=== PATIENT | female | born 1990 | race Caucasian/White ===

== ENCOUNTER 2024-01-07 07:45 | Inpatient (IN) ==
[2024-01-07] MEDS: LACTATED RINGER'S 1,000 ML IV PRN (08:25)
[2024-01-07] MEDS ORDERED: OXYTOCIN 30 UNITS/NSS 30 UNITS/500 ML BAG IV PRN ×2 (08:27→08:34)
[2024-01-07] MEDS ORDERED: LIDOCAINE 1% LOCAL 20 ML VIAL INFIL PRN (08:27)
--- NOTE | 2024-01-07 08:30 | History & Physical Report ---
Date of Service January 07, 2024 Assessment & Plan (1) Encounter for induction of labor: Plan Plan to start pitocin. Once bulb out, plan arom. epidural on demand. fetus category one. anticipate . Admission and Anticipated Discharge Date Admission Date: January 07, 2024 History of Present Illness Chief Complaint: iol Primary Care Provider: IAM Mohan Patient is a 33yowf with iup who presents to labor and delivery for elective iol. She had a browne bulb placed last night. It has not come out. Notes no contractions. No lof/vb. +fm. and Delivery Plans Elective IOL 01/07/24 OB Labs: Blood Type O Positive 06/07/23 Antibody Screen NEGATIVE 06/07/23 Hemoglobin 12.2 g/dl (12.0-16.0) 10/21/23 Hematocrit 35.7 % (37.0-47.0) L 10/21/23 Mean Corpuscular Volume 89.9 fL (80.0-100.0) 06/07/23 Platelet Count 267 K/uL (130-400) 06/07/23 Rubella IgG Antibody Equivocal (Immune) L 06/07/23 Rapid Plasma Reagin Nonreactive (Nonreactive) 06/07/23 Hepatitis B Surface Antigen. NON-REACTIVE (NON-REACTIVE) 06/07/23 Hepatitis C Antibody (EIA) NON-REACTIVE (NON-REACTIVE) 06/07/23 HIV (1&2) Ag and Ab Confirmation NON-REACTIVE (NON-REACTIVE) 06/07/23 Glucose 1 Hour 50 gm Load 88 mg/dl (70-130) 10/21/23 OB Optional Labs: Chlamydia trachomatis RNA Not Detected (NotDetected) 06/07/23 Neisseria gonorrhoeae RNA Not Detected (NotDetected) 06/07/23 Labs Reviewed: cfdna-low risk--mln gbs neg--akh Allergies Allergy/AdvReac Type Severity Reaction Status Date / Time No Known Allergies Allergy Verified 01/06/24 09:02 Home Medications Medication Instructions Recorded Confirmed Type cetirizine 10 mg tablet (Zyrtec) 10 mg PO DAILY PRN Allergy Symptoms 11/13/22 01/06/24 History vit 168-iron 27 mg-folic 1 cap PO 05/28/23 01/06/24 History acid 800 mcg-omega3 235 mg capsule (One-A-Day -1) omeprazole 20 mg tablet,delayed 20 mg PO DAILY 01/06/24 01/06/24 History release Patient History Medical History Mohs defect Surgical History H/O colposcopy with cervical biopsy 2018, LGSIL, neg History of laser assisted in situ keratomileusis Family History Father Heart disease Other Colorectal cancer Myocardial infarction Denies family history of Ovarian cancer Breast cancer Social History Smoking Status: Never smoker Second Hand Exposure: No; Do You Dip or Chew Tobacco: No; Hx Alcohol Use: Yes (not while ) Alcohol type: wine Alcohol Intake Frequency Comment: weekly Hx Substance Use: No Preferred Language: Armenian Communication Ability: Effective Indian Blanket Weaver Required: No Beliefs That Will Affect Care: None marital status: marital status details: Festus [phone] Current Living Situation: Spouse Current Living Situation Comment: lives with spouse, 1 dog current occupational status: employed 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
[2024-01-07] MEDS: OXYTOCIN 30 UNITS/NSS 30 UNITS/500 ML BAG IV PRN (08:46)
[2024-01-07 09:27] LABS: Hematocrit (blood only) 34.3 % (37.0-47.0); Hemoglobin 11.3 g/dl (12.0-16.0); Mean Corpuscular Hemoglobin 30.7 pg (25.0-34.0); Mean Corpuscular Hgb Conc 32.9 g/dL (32.0-36.0); Mean Corpuscular Volume 93.2 fL (80.0-100.0); Mean Platelet Volume 12.1 fL (9.4-12.4); Platelet Count 160 K/uL (130-400); RDW Coefficient of Variation 13.3 % (11.5-14.5); RDW Standard Deviation 45.2 fL (36.4-46.3); Red Blood Count 3.68 M/uL (4.20-5.40); White Blood Count 10.44 K/ul (4.8-10.8)
[2024-01-07] MEDS ORDERED: ePHEDrine sulfate 50 MG/ML AMP IV PRN (12:54)
[2024-01-07] MEDS ORDERED: NALOXONE HCL 1 MG in SODIUM CHLORIDE 0.9% 1,000 ML IV PRN (12:54)
[2024-01-07] MEDS ORDERED: ROPIVACAINE 0.5% PF 5 MG/ML 20 ML VIAL EPI PRN (12:54)
[2024-01-07] MEDS ORDERED: diphenhydrAMINE 50 MG/ML VIAL IV PRN (12:54)
[2024-01-07] MEDS ORDERED: NALBUPHINE HCL 5 MG in SYRINGE 0 ML IV PRN (12:54)
[2024-01-07] MEDS ORDERED: fentaNYL citrate PF 100 MCG/2 ML VIAL EPI PRN (12:54)
[2024-01-07] MEDS ORDERED: BUPIVACAINE 0.25% PF 30 ML VIAL EPI PRN (12:54)
[2024-01-07] MEDS ORDERED: SODIUM CHLORIDE 0.9% PF INJ 10 ML VIAL EPI PRN (12:54)
[2024-01-07] MEDS ORDERED: LIDOCAINE 2% MPF LOCAL 5 ML VIAL EPI PRN (12:54)
[2024-01-07] MEDS ORDERED: NALOXONE HCL 0.4 MG/1 ML VIAL/CARP IV PRN (12:54)
--- NOTE | 2024-01-07 12:55 | Anesthesiology Consultation ---
Date of Service January 07, 2024 Assessment & Plan ASA ASA2 Proposed Anesthesia Anesthesia Type: General Risk / Benefits Reviewed With: PT / POA / Parent / Guardian, Accepts Plan and Informed Consent Obtained History Height/Weight Height: 5 ft 7 in Weight: 92.986 kg Allergies Allergy/AdvReac Type Severity Reaction Status Date / Time No Known Allergies Allergy Verified 01/06/24 09:02 Medications Home Medications Medication Instructions Recorded Confirmed Last Taken cetirizine 10 mg tablet (Zyrtec) 10 mg PO DAILY PRN Allergy Symptoms 11/13/22 01/07/24 01/06/24 22:00 vit 168-iron 27 mg-folic 1 cap PO 05/28/23 01/06/24 01/06/24 22:00 acid 800 mcg-omega3 235 mg capsule (One-A-Day -1) omeprazole 20 mg tablet,delayed 20 mg PO DAILY 01/06/24 01/07/24 01/07/24 06:00 release Active Medications Generic Name Dose Route Start Last Admin Trade Name Edgarq PRN Reason Stop Dose Admin Lactated Ringer's 1,000 mls @ 125 mls/hr 01/07/24 08:27 01/07/24 13:22 Lr IV 01/09/24 08:26 125 mls/hr .Q8H PRN Infusion L&D Protocol Protocol Oxytocin 30 units in 500 mls @ 14 mls/hr 01/07/24 08:33 01/07/24 12:15 Pitocin 30 Units/Nss IV 01/09/24 08:32 0.84 units/hr .Q24H PRN 14 mls/hr Labor Induction/Augmentation Titration Protocol 0.84 UNITS/HR Past Medical History Medical History Mohs defect Exercise / Class Metabolic Activity II 4-5 Yardwork/Stairs/Walk up hill Past Family History Family History Father Heart disease Other Colorectal cancer Myocardial infarction Denies family history of Ovarian cancer Breast cancer Past Surgical History Surgical History H/O colposcopy with cervical biopsy 2018, LGSIL, neg History of laser assisted in situ keratomileusis Past Anesthesia History No Hx of Anesthesia Complications and No Family Hx of Anesthesia Complications History of PONV No Hx of PONV and No Hx of Motion Sickness Social History Smoking Status: Never smoker Do You Dip or Chew Tobacco: No Hx Alcohol Use: Yes (not while ) Alcohol type: wine Hx Substance Use: No substance use type: does not use Review of Systems denies fever/cough/ colds/ chest pain/ SOB/ LAKISHA denies LAKISHA Physical Exam Vital Signs Last Vital Signs Temp 36.6 C 01/07/24 11:15 Pulse 88 01/07/24 13:38 Resp 16 01/07/24 12:30 BP 115/66 01/07/24 13:38 Pulse Ox 100 01/07/24 13:33 ENMT Mouth: no TMJ abnormality and no dentition abnormality Thyromental Distance: > or= 3.5 Finger Breadths Mallampati Class: II Neck neck extension not limited Respiratory normal respiratory effort; no respiratory distress Auscultation: lungs clear to auscultation bilaterally Cardiovascular Rate/Rhythm: regular rate and regular rhythm Neurologic moves all extremities Psychiatric Orientation: alert and oriented x 3 Testing Laboratory Results 01/07/24 08:54 Blood Type Cancelled 01/07/24 08:54 Blood Type O Positive 01/07/24 08:54 Antibody Screen Cancelled 01/07/24 08:54 Antibody Screen NEGATIVE 01/07/24 08:54
[2024-01-07] MEDS: fentANYL 2 MCG/ML BUPIVacaine 0.125%-NSS 100ML BAG ONE (13:36)
[2024-01-07] MEDS: BUPIVACAINE 0.25% PF 30 ML VIAL EPI STA (13:38)
[2024-01-07] MEDS: fentaNYL citrate PF 100 MCG/2 ML VIAL EPI STA (13:38)
[2024-01-07] MEDS: LIDOCAINE 2%/EPINEPHRINE 1:200,000 20 ML PF EPI STA (13:38)
[2024-01-07] MEDS: SODIUM CHLORIDE 0.9% PF INJ 10 ML VIAL EPI STA (13:39)
[2024-01-07] MEDS: BUPIVACAINE 0.25% PF 30 ML VIAL ONE (14:40)
[2024-01-07] MEDS: LIDOCAINE 2%/EPINEPHRINE 1:200,000 20 ML PF ONE (14:40)
[2024-01-07] MEDS: fentaNYL citrate PF 100 MCG/2 ML VIAL ONE (14:54)
[2024-01-07] MEDS: SODIUM CHLORIDE 0.9% PF INJ 10 ML VIAL ONE (14:54)
--- NOTE | 2024-01-07 15:24 | Labor Progress Brief Note ---
Date of Service January 07, 2024 Subjective Finally comfortable Assessment & Plan (1) Encounter for induction of labor: Plan continue current management. fetus category one. anticipate . Admission and Anticipated Discharge Date Admission Date: January 07, 2024 Physical Exam Physical Exam: cx--5/80/-2 arom--clear toco--q2-4min, pit at 14 efm--130s with mod variability, accels present, no decels Results & Data Vital Signs (Past 12 Hours) Vital Signs Temp Pulse Resp BP Pulse Ox 01/07/24 15:18 95 H 100 01/07/24 15:16 86 136/83 01/07/24 15:13 89 100 01/07/24 15:11 85 132/75 01/07/24 15:08 87 100 01/07/24 15:06 88 128/78 01/07/24 15:03 80 100 01/07/24 15:00 18 01/07/24 15:00 36.7 C 18 01/07/24 14:59 85 123/71 01/07/24 14:58 85 100 01/07/24 14:57 83 121/67 01/07/24 14:55 92 H 124/65 01/07/24 14:53 88 116/60 100 01/07/24 14:51 88 126/63 01/07/24 14:49 86 123/60 01/07/24 14:48 97 H 100 01/07/24 14:47 112 H 124/72 01/07/24 14:45 123/64 01/07/24 14:43 100 01/07/24 14:43 95 H 01/07/24 14:43 100 H 121/64 01/07/24 14:41 94 H 117/63 01/07/24 14:38 86 99 01/07/24 14:35 93 H 138/75 01/07/24 14:33 96 H 140/83 100 01/07/24 14:31 95 H 136/76 01/07/24 14:29 104 H 135/75 01/07/24 14:28 113 H 100 01/07/24 14:23 96 H 100 01/07/24 14:18 99 H 100 01/07/24 14:15 82 122/68 01/07/24 14:13 89 100 01/07/24 14:08 90 100 01/07/24 14:03 84 100 01/07/24 13:59 82 118/63 01/07/24 13:58 86 100 01/07/24 13:54 83 112/62 01/07/24 13:53 86 99 01/07/24 13:48 94 H 121/62 100 01/07/24 13:46 93 H 117/66 01/07/24 13:44 91 H 121/64 01/07/24 13:43 90 99 01/07/24 13:42 88 119/70 01/07/24 13:40 91 H 115/67 01/07/24 13:38 100 01/07/24 13:38 90 01/07/24 13:38 88 115/66 01/07/24 13:36 94 H 117/64 01/07/24 13:34 93 H 115/61 01/07/24 13:33 105 H 100 01/07/24 13:32 88 119/63 01/07/24 13:30 93 H 119/62 01/07/24 13:29 115 H 148/64 H 01/07/24 13:28 114 H 100 01/07/24 13:26 103 H 134/83 01/07/24 13:24 104 H 138/86 01/07/24 13:23 105 H 100 01/07/24 13:22 107 H 132/83 01/07/24 13:21 104 H 93 01/07/24 13:20 96 H 131/85 01/07/24 13:18 101 H 130/81 100 01/07/24 13:13 114 H 100 01/07/24 13:08 100 H 100 01/07/24 13:03 114 H 100 01/07/24 13:00 20 01/07/24 13:00 20 01/07/24 12:58 117 H 100 01/07/24 12:53 120 H 100 01/07/24 12:30 16 01/07/24 12:30 16 01/07/24 12:20 81 123/72 01/07/24 12:00 18 01/07/24 12:00 18 01/07/24 11:30 16 01/07/24 11:30 16 01/07/24 11:16 89 118/76 01/07/24 11:15 18 01/07/24 11:15 36.6 C 18 01/07/24 11:00 18 01/07/24 11:00 18 01/07/24 11:00 18 01/07/24 11:00 18 01/07/24 10:30 16 01/07/24 10:30 16 01/07/24 10:02 92 H 112/71 01/07/24 10:00 18 01/07/24 10:00 18 01/07/24 09:30 18 01/07/24 09:30 18 01/07/24 09:00 16 01/07/24 09:00 36.9 C 16 01/07/24 08:14 36.9 C 18 01/07/24 08:09 36.9 C 105 H 18 116/64 Coding Level of Care Code None Diagnoses Encounter for induction of labor Z34.90
[2024-01-07] MEDS: ONDANSETRON INJ 2 MG/ML 2 ML VIAL IV PRN (15:55)
[2024-01-07] MEDS: fentANYL 2 MCG/ML BUPIVacaine 0.125%-NSS 100ML BAG EPI PRN (19:07)
--- NOTE | 2024-01-07 22:15 | Communication Note ---
Date of Service: January 07, 2024 late entry: an 1 hour after initial epidural placement, pt painful. pt had lost ability to move feet but had regained the ability to move them. i decided to replace the epidural. pt agreeable. previous epidural removed with tip intact. sterile prep/drape/mask/gloves. l3-l4 landmarks. 1% lidocaine infiltrated. 18 gauge touey advanced to FELI with air at @ 6cm. easy catheter thread to 11 cm. 2% lidocaine 4mL test dose given. negative IV/IT. bolus of 5mL 0.25% bupivicaine given. catheter secured and patient reports improvement in pain
--- NOTE | 2024-01-08 00:13 | Labor Progress Brief Note ---
Date of Service January 08, 2024 Subjective comfortable Assessment & Plan (1) Encounter for induction of labor: Plan making good change. fetus category two but overall reassuring. labor down. Admission and Anticipated Discharge Date Admission Date: January 07, 2024 Physical Exam Physical Exam: cx--ant lip/100/0 per nursing toco--q2min, pit at 17 efm--130s with mod variability, accels present, occasional variable Results & Data Vital Signs (Past 12 Hours) Vital Signs Temp Pulse Resp BP Pulse Ox 01/08/24 00:09 105 H 96 01/08/24 00:04 102 H 97 01/07/24 23:59 95 H 98 01/07/24 23:57 93 H 132/81 01/07/24 23:54 96 H 98 01/07/24 23:49 112 H 98 01/07/24 23:44 95 H 97 01/07/24 23:42 90 139/80 01/07/24 23:39 117 H 99 01/07/24 23:34 107 H 100 01/07/24 23:30 20 01/07/24 23:30 37.1 C 20 01/07/24 23:29 96 H 97 01/07/24 23:27 85 127/80 01/07/24 23:24 87 97 01/07/24 23:19 88 100 01/07/24 23:14 88 99 01/07/24 23:12 85 129/72 01/07/24 23:09 93 H 100 01/07/24 23:04 106 H 99 01/07/24 23:00 18 01/07/24 23:00 18 01/07/24 22:59 93 H 97 01/07/24 22:56 84 130/69 01/07/24 22:54 98 H 97 01/07/24 22:49 97 H 97 01/07/24 22:44 98 01/07/24 22:44 95 H 01/07/24 22:44 94 H 144/70 H 01/07/24 22:41 111 H 151/111 H 01/07/24 22:39 96 H 99 01/07/24 22:34 94 H 98 01/07/24 22:30 20 01/07/24 22:30 20 01/07/24 22:29 95 H 97 01/07/24 22:28 84 131/71 01/07/24 22:24 99 H 99 01/07/24 22:19 90 96 01/07/24 22:14 92 H 97 01/07/24 22:11 86 118/73 01/07/24 22:09 78 98 01/07/24 22:04 82 98 01/07/24 22:00 20 01/07/24 22:00 20 01/07/24 21:59 77 99 01/07/24 21:56 77 124/77 01/07/24 21:54 90 98 01/07/24 21:51 93 H 93 01/07/24 21:49 89 100 01/07/24 21:44 93 H 98 01/07/24 21:41 88 116/65 01/07/24 21:39 94 H 99 01/07/24 21:34 90 98 01/07/24 21:30 18 01/07/24 21:30 18 01/07/24 21:29 88 99 01/07/24 21:27 81 113/58 L 01/07/24 21:24 78 98 01/07/24 21:19 88 98 01/07/24 21:14 96 H 99 01/07/24 21:11 85 114/55 L 01/07/24 21:09 92 H 100 01/07/24 21:04 88 99 01/07/24 21:00 18 01/07/24 21:00 37.0 C 18 01/07/24 20:59 87 100 01/07/24 20:57 80 125/70 01/07/24 20:54 78 99 01/07/24 20:49 77 98 01/07/24 20:44 76 97 01/07/24 20:41 76 116/76 01/07/24 20:39 84 100 01/07/24 20:34 81 99 01/07/24 20:30 18 01/07/24 20:30 18 01/07/24 20:29 100 01/07/24 20:29 93 H 01/07/24 20:29 96 H 92 01/07/24 20:27 100 H 127/85 01/07/24 20:24 84 99 01/07/24 20:19 91 H 98 01/07/24 20:15 107 H 90 01/07/24 20:14 106 H 97 01/07/24 20:12 100 H 125/73 01/07/24 20:09 98 H 98 01/07/24 20:04 96 H 98 01/07/24 20:00 18 01/07/24 20:00 18 01/07/24 19:59 100 H 99 01/07/24 19:56 93 H 116/62 01/07/24 19:54 95 H 99 01/07/24 19:49 101 H 99 01/07/24 19:44 95 H 99 01/07/24 19:43 92 H 110/59 L 01/07/24 19:39 97 H 99 01/07/24 19:34 83 100 01/07/24 19:30 20 01/07/24 19:30 20 01/07/24 19:29 74 97 01/07/24 19:26 82 123/65 01/07/24 19:24 92 H 99 01/07/24 19:19 87 99 01/07/24 19:15 37.1 C 18 01/07/24 19:14 94 H 98 01/07/24 19:12 93 H 140/75 01/07/24 19:09 107 H 99 01/07/24 19:04 94 H 98 01/07/24 19:00 18 01/07/24 19:00 18 01/07/24 18:59 81 99 01/07/24 18:57 93 H 124/76 01/07/24 18:54 96 H 100 01/07/24 18:49 94 H 98 01/07/24 18:44 87 100 01/07/24 18:41 85 130/71 01/07/24 18:39 89 98 01/07/24 18:38 92 H 100 01/07/24 18:33 89 100 01/07/24 18:30 16 01/07/24 18:30 16 01/07/24 18:28 82 100 01/07/24 18:23 100 01/07/24 18:23 84 01/07/24 18:23 84 119/62 01/07/24 18:18 75 100 01/07/24 18:13 81 100 01/07/24 18:09 78 119/66 01/07/24 18:08 80 100 01/07/24 18:03 100 H 100 01/07/24 18:00 18 01/07/24 18:00 18 01/07/24 17:58 91 H 100 01/07/24 17:53 100 01/07/24 17:53 106 H 01/07/24 17:53 103 H 134/67 01/07/24 17:48 89 100 01/07/24 17:43 99 H 99 01/07/24 17:39 88 131/58 L 01/07/24 17:38 111 H 100 01/07/24 17:33 80 100 01/07/24 17:30 18 01/07/24 17:30 18 01/07/24 17:28 82 100 01/07/24 17:23 89 98 01/07/24 17:18 96 H 100 01/07/24 17:13 92 H 100 01/07/24 17:09 97 H 01/07/24 17:09 91 H 122/60 93 01/07/24 17:08 83 95 01/07/24 17:03 86 100 01/07/24 17:00 18 01/07/24 17:00 37.3 C 18 01/07/24 16:58 89 100 01/07/24 16:56 85 131/62 01/07/24 16:53 111 H 100 01/07/24 16:48 113 H 100 01/07/24 16:43 83 100 01/07/24 16:42 92 H 91 01/07/24 16:38 91 H 112/67 100 01/07/24 16:33 104 H 100 01/07/24 16:30 20 01/07/24 16:30 20 01/07/24 16:30 18 01/07/24 16:30 18 01/07/24 16:28 107 H 100 01/07/24 16:27 107 H 129/79 01/07/24 16:23 87 100 01/07/24 16:18 88 100 01/07/24 16:13 101 H 100 01/07/24 16:08 114 H 100 01/07/24 16:03 96 01/07/24 16:03 100 H 01/07/24 16:03 89 92 01/07/24 16:00 18 01/07/24 16:00 18 01/07/24 15:59 93 H 124/68 01/07/24 15:58 86 100 01/07/24 15:53 100 H 97 07/30/24 15:48 103 H 97 01/07/24 15:43 93 H 100 01/07/24 15:38 97 H 126/77 100 01/07/24 15:33 94 H 100 01/07/24 15:30 18 01/07/24 15:30 18 01/07/24 15:28 94 H 100 01/07/24 15:23 108 H 100 01/07/24 15:22 86 135/88 01/07/24 15:18 95 H 100 01/07/24 15:16 86 136/83 01/07/24 15:13 89 100 01/07/24 15:11 85 132/75 01/07/24 15:08 87 100 01/07/24 15:06 88 128/78 01/07/24 15:03 80 100 01/07/24 15:00 18 01/07/24 15:00 36.7 C 18 01/07/24 14:59 85 123/71 01/07/24 14:58 85 100 01/07/24 14:57 83 121/67 01/07/24 14:55 92 H 124/65 01/07/24 14:53 88 116/60 100 01/07/24 14:51 88 126/63 01/07/24 14:49 86 123/60 01/07/24 14:48 97 H 100 01/07/24 14:47 112 H 124/72 01/07/24 14:45 123/64 01/07/24 14:43 100 01/07/24 14:43 95 H 01/07/24 14:43 100 H 121/64 01/07/24 14:41 94 H 117/63 01/07/24 14:38 86 99 01/07/24 14:35 93 H 138/75 01/07/24 14:33 96 H 140/83 100 01/07/24 14:31 95 H 136/76 01/07/24 14:29 104 H 135/75 01/07/24 14:28 113 H 100 01/07/24 14:23 96 H 100 01/07/24 14:18 99 H 100 01/07/24 14:15 82 122/68 01/07/24 14:13 89 100 01/07/24 14:08 90 100 01/07/24 14:03 84 100 07/30/24 13:59 82 118/63 01/07/24 13:58 86 100 01/07/24 13:54 83 112/62 01/07/24 13:53 86 99 01/07/24 13:48 94 H 121/62 100 01/07/24 13:46 93 H 117/66 01/07/24 13:44 91 H 121/64 01/07/24 13:43 90 99 01/07/24 13:42 88 119/70 01/07/24 13:40 91 H 115/67 01/07/24 13:38 100 01/07/24 13:38 90 01/07/24 13:38 88 115/66 01/07/24 13:36 94 H 117/64 01/07/24 13:34 93 H 115/61 01/07/24 13:33 105 H 100 01/07/24 13:32 88 119/63 01/07/24 13:30 93 H 119/62 01/07/24 13:29 115 H 148/64 H 01/07/24 13:28 114 H 100 01/07/24 13:26 103 H 134/83 01/07/24 13:24 104 H 138/86 01/07/24 13:23 105 H 100 01/07/24 13:22 107 H 132/83 01/07/24 13:21 104 H 93 01/07/24 13:20 96 H 131/85 01/07/24 13:18 101 H 130/81 100 01/07/24 13:13 114 H 100 01/07/24 13:08 100 H 100 01/07/24 13:03 114 H 100 01/07/24 13:00 20 01/07/24 13:00 20 01/07/24 12:58 117 H 100 01/07/24 12:53 120 H 100 01/07/24 12:30 16 01/07/24 12:30 16 01/07/24 12:20 81 123/72 Coding Level of Care Code None Diagnoses Encounter for induction of labor Z34.90
[2024-01-08] MEDS ORDERED: NURSING L&D Epidural Breakthrough Pain Update ONE (00:33)
[2024-01-08] MEDS ORDERED: LIDOCAINE 2% MPF LOCAL 5 ML VIAL ONE (01:10)
[2024-01-08] MEDS ORDERED: fentaNYL citrate PF 100 MCG/2 ML VIAL ONE (01:10)
--- NOTE | 2024-01-08 01:18 | Anesthesia Procedure Note ---
Date of Service January 08, 2024 Anesthesia Epidural Re-Dose Vital Signs Temp Pulse Resp BP Pulse Ox 37.1 C 98 H 20 128/75 100 01/07/24 23:30 01/08/24 01:16 01/08/24 00:30 01/08/24 01:16 01/08/24 01:14 Notes Pain Intensity: 10 Dilatation (cm): 9.5 Effacement (%): 100 Called by nursing to evaluate epidural as the patient is having increased pain. The epidural was re-dosed with the following medications (all medications via epidural route) after negative aspiration of the epidural catheter for CSF/HEME. 2ml 2% lidocaine with epi, 3mL ropivacaine 0.5% and 100 mcg fetanyl via epidural After Epidural Re-Dose Mental Status: alert / awake / arousable Pain: improving with treatment Airway Patency, RR, SpO2: stable & adequate BP & HR: stable & adequate
[2024-01-08] MEDS: CALCIUM CARBONATE 500 MG CHEWABLE TAB PO PRN (02:07)
--- NOTE | 2024-01-08 03:05 | Labor Progress Brief Note ---
Date of Service January 08, 2024 Subjective pushing with good effort after laboring down Assessment & Plan (1) Encounter for induction of labor: Plan pushing. fetus overall reassuring for now. good effort. anticipate . Admission and Anticipated Discharge Date Admission Date: January 07, 2024 Physical Exam Physical Exam: cx--c/c/+1 toco--q2min efm--130s with mod to marked variability, accels present, variabile/decels with contractions Results & Data Vital Signs (Past 12 Hours) Vital Signs Temp Pulse Resp BP Pulse Ox 01/08/24 02:59 97 01/08/24 02:59 141 H 01/08/24 02:59 108 H 88 L 01/08/24 02:54 97 01/08/24 02:54 141 H 01/08/24 02:54 116 H 81 L 01/08/24 02:49 80 L 01/08/24 02:49 102 H 01/08/24 02:49 100 H 132/71 01/08/24 02:44 97 01/08/24 02:44 129 H 01/08/24 02:44 104 H 85 L 01/08/24 02:39 118 H 98 01/08/24 02:37 116 H 86 L 01/08/24 02:34 105 H 137/90 98 01/08/24 02:29 108 H 100 01/08/24 02:24 98 H 99 01/08/24 02:19 95 H 99 01/08/24 02:18 47 L 170/119 H 01/08/24 02:14 98 H 97 01/08/24 02:09 90 96 01/08/24 02:04 115 H 100 01/08/24 02:00 18 01/08/24 02:00 18 01/08/24 01:59 115 H 93 01/08/24 01:57 113 H 87 L 01/08/24 01:54 69 97 01/08/24 01:49 100 01/08/24 01:49 91 H 01/08/24 01:49 82 126/68 01/08/24 01:44 80 96 01/08/24 01:39 83 98 01/08/24 01:34 111 H 98 01/08/24 01:30 20 01/08/24 01:30 20 01/08/24 01:29 100 H 99 01/08/24 01:27 82 124/71 01/08/24 01:24 84 100 01/08/24 01:21 83 121/72 01/08/24 01:20 36.9 C 01/08/24 01:19 86 134/74 99 01/08/24 01:17 96 H 129/77 01/08/24 01:16 98 H 128/75 01/08/24 01:14 83 100 01/08/24 01:12 79 128/63 01/08/24 01:09 76 97 01/08/24 01:04 79 99 01/08/24 01:00 20 01/08/24 01:00 20 01/08/24 00:59 78 98 01/08/24 00:56 85 134/68 01/08/24 00:54 85 100 01/08/24 00:49 85 100 01/08/24 00:44 100 H 99 01/08/24 00:39 79 99 01/08/24 00:34 81 98 01/08/24 00:30 20 01/08/24 00:30 20 01/08/24 00:29 96 H 98 01/08/24 00:27 81 136/80 01/08/24 00:24 94 H 97 01/08/24 00:19 100 H 98 01/08/24 00:14 97 H 97 01/08/24 00:11 96 H 135/87 01/08/24 00:09 105 H 96 01/08/24 00:04 102 H 97 01/08/24 00:00 18 01/08/24 00:00 18 01/07/24 23:59 95 H 98 01/07/24 23:57 93 H 132/81 01/07/24 23:54 96 H 98 01/07/24 23:49 112 H 98 01/07/24 23:44 95 H 97 01/07/24 23:42 90 139/80 01/07/24 23:39 117 H 99 01/07/24 23:34 107 H 100 01/07/24 23:30 20 01/07/24 23:30 37.1 C 20 01/07/24 23:29 96 H 97 01/07/24 23:27 85 127/80 01/07/24 23:24 87 97 01/07/24 23:19 88 100 07/30/24 23:14 88 99 01/07/24 23:12 85 129/72 01/07/24 23:09 93 H 100 01/07/24 23:04 106 H 99 01/07/24 23:00 18 01/07/24 23:00 18 01/07/24 22:59 93 H 97 01/07/24 22:56 84 130/69 01/07/24 22:54 98 H 97 01/07/24 22:49 97 H 97 01/07/24 22:44 98 01/07/24 22:44 95 H 01/07/24 22:44 94 H 144/70 H 01/07/24 22:41 111 H 151/111 H 01/07/24 22:39 96 H 99 01/07/24 22:34 94 H 98 01/07/24 22:30 20 01/07/24 22:30 20 01/07/24 22:29 95 H 97 01/07/24 22:28 84 131/71 01/07/24 22:24 99 H 99 01/07/24 22:19 90 96 01/07/24 22:14 92 H 97 01/07/24 22:11 86 118/73 01/07/24 22:09 78 98 01/07/24 22:04 82 98 01/07/24 22:00 20 01/07/24 22:00 20 01/07/24 21:59 77 99 01/07/24 21:56 77 124/77 01/07/24 21:54 90 98 01/07/24 21:51 93 H 93 01/07/24 21:49 89 100 01/07/24 21:44 93 H 98 01/07/24 21:41 88 116/65 01/07/24 21:39 94 H 99 01/07/24 21:34 90 98 01/07/24 21:30 18 01/07/24 21:30 18 01/07/24 21:29 88 99 01/07/24 21:27 81 113/58 L 01/07/24 21:24 78 98 01/07/24 21:19 88 98 01/07/24 21:14 96 H 99 01/07/24 21:11 85 114/55 L 01/07/24 21:09 92 H 100 01/07/24 21:04 88 99 01/07/24 21:00 18 01/07/24 21:00 37.0 C 18 01/07/24 20:59 87 100 01/07/24 20:57 80 125/70 01/07/24 20:54 78 99 01/07/24 20:49 77 98 01/07/24 20:44 76 97 01/07/24 20:41 76 116/76 01/07/24 20:39 84 100 01/07/24 20:34 81 99 01/07/24 20:30 18 01/07/24 20:30 18 01/07/24 20:29 100 01/07/24 20:29 93 H 01/07/24 20:29 96 H 92 01/07/24 20:27 100 H 127/85 01/07/24 20:24 84 99 01/07/24 20:19 91 H 98 01/07/24 20:15 107 H 90 01/07/24 20:14 106 H 97 01/07/24 20:12 100 H 125/73 01/07/24 20:09 98 H 98 01/07/24 20:04 96 H 98 01/07/24 20:00 18 01/07/24 20:00 18 01/07/24 19:59 100 H 99 01/07/24 19:56 93 H 116/62 01/07/24 19:54 95 H 99 01/07/24 19:49 101 H 99 01/07/24 19:44 95 H 99 01/07/24 19:43 92 H 110/59 L 01/07/24 19:39 97 H 99 01/07/24 19:34 83 100 01/07/24 19:30 20 01/07/24 19:30 20 01/07/24 19:29 74 97 01/07/24 19:26 82 123/65 01/07/24 19:24 92 H 99 01/07/24 19:19 87 99 01/07/24 19:15 37.1 C 18 01/07/24 19:14 94 H 98 01/07/24 19:12 93 H 140/75 01/07/24 19:09 107 H 99 01/07/24 19:04 94 H 98 01/07/24 19:00 18 01/07/24 19:00 18 01/07/24 18:59 81 99 01/07/24 18:57 93 H 124/76 01/07/24 18:54 96 H 100 01/07/24 18:49 94 H 98 01/07/24 18:44 87 100 01/07/24 18:41 85 130/71 01/07/24 18:39 89 98 01/07/24 18:38 92 H 100 01/07/24 18:33 89 100 01/07/24 18:30 16 01/07/24 18:30 16 01/07/24 18:28 82 100 01/07/24 18:23 100 01/07/24 18:23 84 01/07/24 18:23 84 119/62 01/07/24 18:18 75 100 01/07/24 18:13 81 100 01/07/24 18:09 78 119/66 01/07/24 18:08 80 100 01/07/24 18:03 100 H 100 01/07/24 18:00 18 01/07/24 18:00 18 01/07/24 17:58 91 H 100 01/07/24 17:53 100 01/07/24 17:53 106 H 01/07/24 17:53 103 H 134/67 01/07/24 17:48 89 100 01/07/24 17:43 99 H 99 01/07/24 17:39 88 131/58 L 01/07/24 17:38 111 H 100 01/07/24 17:33 80 100 01/07/24 17:30 18 01/07/24 17:30 18 01/07/24 17:28 82 100 01/07/24 17:23 89 98 01/07/24 17:18 96 H 100 01/07/24 17:13 92 H 100 01/07/24 17:09 97 H 01/07/24 17:09 91 H 122/60 93 01/07/24 17:08 83 95 01/07/24 17:03 86 100 01/07/24 17:00 18 01/07/24 17:00 37.3 C 18 01/07/24 16:58 89 100 01/07/24 16:56 85 131/62 01/07/24 16:53 111 H 100 01/07/24 16:48 113 H 100 01/07/24 16:43 83 100 07/30/24 16:42 92 H 91 01/07/24 16:38 91 H 112/67 100 01/07/24 16:33 104 H 100 01/07/24 16:30 20 01/07/24 16:30 20 01/07/24 16:30 18 01/07/24 16:30 18 01/07/24 16:28 107 H 100 01/07/24 16:27 107 H 129/79 01/07/24 16:23 87 100 01/07/24 16:18 88 100 01/07/24 16:13 101 H 100 01/07/24 16:08 114 H 100 01/07/24 16:03 96 01/07/24 16:03 100 H 01/07/24 16:03 89 92 01/07/24 16:00 18 01/07/24 16:00 18 01/07/24 15:59 93 H 124/68 01/07/24 15:58 86 100 01/07/24 15:53 100 H 97 01/07/24 15:48 103 H 97 01/07/24 15:43 93 H 100 01/07/24 15:38 97 H 126/77 100 01/07/24 15:33 94 H 100 01/07/24 15:30 18 01/07/24 15:30 18 01/07/24 15:28 94 H 100 01/07/24 15:23 108 H 100 01/07/24 15:22 86 135/88 01/07/24 15:18 95 H 100 01/07/24 15:16 86 136/83 01/07/24 15:13 89 100 01/07/24 15:11 85 132/75 01/07/24 15:08 87 100 01/07/24 15:06 88 128/78 Coding Level of Care Code None Diagnoses Encounter for induction of labor Z34.90
--- NOTE | 2024-01-08 05:20 | Delivery Summary ---
Vaginal Delivery Summary Date of Service January 08, 2024 Vaginal Delivery Summary and 2nd Degree LAC Pre-operative Diagnosis: at 39 weeks elective iol Post-operative Diagnosis: same Procedure: pitocin epidural arom second degree laceration and repair QBL: 212cc Anesthesia: epidural Procedure: The patient presented to labor and delivery for iol. She got pitocin induction, epidural and then arom for clear fluid. The patient progressed to c/c/+1. The patient pushed for 2 hrs 20 min to deliver a viable female in miguelina position. The nose and mouth were bulb suctioned on the perineum and the rest of the was then delivered without difficulty. The baby was vigorous. The nose and mouth were again bulb suctioned and the was placed in the maternal abdomen for drying and attention. Cord was clamped and cut at one minute of life. Cord blood and segment obtained. Placenta delivered spontaneous, intact with a three vessel cord. Cervix/sulci/rectum were intact. A second degree perineal laceration was repaired in the normal standard fashion. Hemostasis obtained with dilute pitocin and fundal massage. Apgars were 8/9. Mother and baby doing well at the end of the delivery. [facility] [place] Delivery Type Details: and 2nd Degree LAC
[2024-01-08] MEDS ORDERED: HYDROCORTISONE ACETATE 25 MG SUPP PR PRN (05:27)
[2024-01-08] MEDS ORDERED: OXYTOCIN 30 UNITS/NSS 30 UNITS/500 ML BAG IV PRN (05:27)
[2024-01-08] MEDS ORDERED: oxyCODONE/ACETAMINOPHEN 5mg/325mg TAB PO PRN (05:27)
[2024-01-08] MEDS ORDERED: bisacodyL 10 MG SUPP PR PRN (05:27)
[2024-01-08] MEDS: ACETAMINOPHEN 325 MG TAB PO PRN (06:13)
[2024-01-08] MEDS: IBUPROFEN 600 MG TAB PO PRN (06:13)
[2024-01-08] MEDS: DIPHTHER/TETAN/PERTUS Vaccine (Tdap, Adol/Adult) 0.5mL IM ONE (06:14)
[2024-01-08] MEDS: ePHEDrine sulfate 50 MG/ML AMP ONE (06:15)
--- NOTE | 2024-01-08 07:20 | Anesthesia Procedure Note ---
Date of Service January 08, 2024 Anesthesia Post Epidural Note Vital Signs Vital Signs: Temp Pulse Resp BP Pulse Ox 37.1 C 96 H 20 126/58 L 100 01/08/24 03:45 01/08/24 07:10 01/08/24 06:40 01/08/24 07:10 01/08/24 05:09 Pain Intensity Abdomen: Pain Intensity: 4 Notes Mental Status: alert / awake / arousable and participated in evaluation Patient Amnestic to Procedure: No Nausea / Vomiting: adequately controlled Pain: adequately controlled Airway Patency, RR, SpO2: stable & adequate BP & HR: stable & adequate Hydration State: stable & adequate Neuraxial Anesthesia: was administered and sensory block is resolving Anesthetic Complications: no major complications apparent and Pt Satisfied with anesthetic care Epidural: Removed without complications and With tip intact
[2024-01-08] MEDS: BENZOCAINE 20% SPRY 85 APPLN/85 GM CAN EXT PRN (08:41)
[2024-01-08] MEDS: DOCUSATE SODIUM 100 MG CAP PO SCH (08:41)
[2024-01-08] MEDS: PRENATAL VITAMIN 1 TAB PO SCH (08:41)
[2024-01-09 06:11] LABS: Hematocrit (blood only) 30.8 % (37.0-47.0); Hemoglobin 10.2 g/dl (12.0-16.0)
--- NOTE | 2024-01-09 07:04 | Obstetrical Progress Note ---
Date of Service January 09, 2024 Assessment & Plan (1) care following vaginal delivery: Plan stable, doing well. desires dc home. instructions reviewed, f/u 6 wk pp. breast/rhpos/r equiv, had mmr. Day #:: 1 Subjective Ambulation: ambulating normally Voiding: no voiding problems Diet Tolerance:: regular diet Lochia:: Small Feeding Type:: breast feeding no concerns. wants to go home later today, delivered very early yesterday. hgb noted. Constitutional: + as per Subjective / HPI Physical Exam Constitutional WD/WN, vitals as above Respiratory normal respiratory effort, lungs clear to auscultation Cardiovascular Rate/Rhythm: regular rate and regular rhythm Gastrointestinal (Abdomen) Inspection/Auscultation: abdomen normal to inspection Percussion/Palpation: abdomen soft Fundus firm 2cm down Musculoskeletal nt calves no edema Neurologic grossly normal Psychiatric A+Ox3, euthymic affect Results & Data Vital Signs (Past 12 Hours) Vital Signs Temp Pulse Resp BP Pulse Ox O2 Del Method 01/09/24 04:54 98.1 F 83 18 114/74 96 Room Air 01/08/24 23:26 97.5 F L 90 18 105/69 97 Room Air 01/08/24 20:25 97.5 F L 87 18 118/66 97 Room Air
[2024-01-09] MEDS: MEASLES, MUMPS & RUBELLA VIRUS VACCINE (MMR) 0.5ML VIAL ONE (15:33)
[2024-01-09] MEDS ORDERED: bisacodyL 5 MG TABEC PO SCH (20:00)
== END 2024-01-09 16:00 | disposition home or self-care (01) | DRG 807 ==
LOC: 4S1 07:45 → 4E2 01-08 08:12